=== PATIENT | male | born 1960 | race Caucasian/White ===

== ENCOUNTER 2017-10-10 17:18 | Emergency (ER) | payer OTHER ==
--- NOTE | 2017-10-10 17:46 | EDPHY ---
HPI/HX/ROS/PE/MDM Narrative: CHIEF COMPLAINT: Vomiting, shaking, chills HISTORY OF PRESENT ILLNESS: The patient is a 57 y/o male complaining of nausea, shaking, body aches, and chills onset 10:00, 8 hours ago. At 12:00, 6 hours ago, he began to vomit. His notes that the patient was not febrile, but was sweaty. Also felt lightheaded but no syncope. When he takes a deep breath he has mild low chest pain, mild thoracic back pain, and feels short of breath. He is currently feeling exhausted and has mild thoracic back pain. No influenza vaccination this year. Denies history of CAD, diabetes, hypertension, asthma, emphysema. Patient reports he has had midline thoracic back pain for months which has not received attention from medical providers. No fever, palpitations, diarrhea, urinary complaints, headache. REVIEW OF SYSTEMS: Aside from elements discussed in the HPI, a comprehensive 10-point review of systems was reviewed and is negative. PAST MEDICAL HISTORY: Appendectomy, fat emboli, left leg surgery SOCIAL HISTORY: Lives in [place], , [facility] VITAL SIGNS: HR: 130, BP: 137/84, others reviewed by me GENERAL: Well-developed, well-nourished, resting comfortably in no respiratory distress. Seems tired. HEENT: Atraumatic. Eyes: No icterus, no injection. Mouth: moist mucous membranes. No erythema or lesions. Neck: supple with no adenopathy. LUNGS: Clear to auscultation bilaterally, no wheezes, rhonchi or rales. CARDIAC: Tachycardic, no rubs, murmurs or gallops. ABDOMEN: Soft, nontender, nondistended, bowel sounds normal. BACK: No CVA tenderness. No midline pain to palpation. No rash. EXTREMITIES: No trauma. No edema. Range of motion is normal throughout. NEURO: Alert and oriented, grossly nonfocal. SKIN: Warm to the touch, slight diaphoresis, no rash. PSYCHIATRIC: Normal mentation, no agitation. Portions of this note were transcribed by a medical technologist hematology. I personally performed a history, physical exam, medical decision making, and confirmed accuracy of information the transcribed note. ED Course: The patient is a 57 y/o male presenting with nausea, chills, mild back pain, and mild lower chest pain. On exam he is tachycardic, clammy, and warm. Chest x- ray, EKG, and labs ordered. 1L IV NS administered. 1831: 12-LEAD EKG: Please see the full report in [employer] [facility]. My interpretation: Sinus tachycardic with a rate of 113. 1836: Patient has a negative troponin, negative D-dimer, largely unremarkable labs the exception of ketones in his urine and hemoconcentration noted on his CBC. No evidence of urinary tract infection. Influenza is negative. Additional 1L IV NS administered. 1919: Chest x-ray demonstrates some bibasilar atelectasis. Patient received a DuoNeb. 2036: Reassessed patient; he is feeling better after the DuoNeb and 2L IV NS. Suspect viral infection. No evidence of pneumonia, urinary tract infection, are significantly elevated white blood cell count. No evidence of bony thoracic findings on chest x-ray. I did discuss with the patient importance of following up with his primary care physician regarding this persistent and months long complaints of thoracic back pain. I have prescribed him Zofran for nausea, an inhaler, and advised him to take Tylenol and Ibuprofen for his pain. Return precautions provided; patient is comfortable with this plan. MDM: Differential diagnoses for the patient's symptom complex was considered including but not limited to influenza, viral syndrome, pneumonia, pulmonary embolism, gastroenteritis, gallstone disease, pancreatitis, UTI. - Data Points Imaging Results: CXR: Impression: 1. Mild airways disease and minimal left basilar atelectasis. 2. No pneumonia or effusion. Dictated By: Clay Irby MD Imaging: I viewed and interpreted images myself Laboratory Results: Laboratory Results 10/10/17 17:51 10/10/17 17:51 Medications Given: Discontinued Medications Albuterol (Proventil Neb) 3 ml IH EDNOW ONE Stop: 10/10/17 19:20 Last Admin: 10/10/17 19:38 Dose: 3 ml Albuterol Sulfate (Proventil Inh Prepack) 1 mdi TAKEHOME EDNOW ONE Stop: 10/10/17 21:12 Last Admin: 10/10/17 21:35 Dose: 1 mdi Sodium Chloride (Ns) 1,000 mls @ 0 mls/hr IV ONCE ONE; Wide Open PRN Reason: Protocol Stop: 02/04/18 18:05 Last Admin: 10/10/17 18:25 Dose: 1,000 mls Sodium Chloride (Ns) 1,000 mls @ 0 mls/hr IV ONCE ONE; Wide Open PRN Reason: Protocol Stop: 10/10/17 18:39 Last Admin: 10/10/17 18:40 Dose: 1,000 mls Sodium Chloride (Ns) 1,000 mls @ 0 mls/hr IV ONCE ONE; Wide Open PRN Reason: Protocol Stop: 10/10/17 19:59 Last Admin: 10/10/17 20:58 Dose: Not Given Ibuprofen (Motrin) 600 mg PO EDNOW ONE Stop: 10/10/17 20:43 Last Admin: 10/10/17 21:06 Dose: 600 mg Ondansetron HCl (Zofran Odt 4 Mg Prepack#2) 1 btl TAKEHOME EDNOW ONE Stop: 10/10/17 21:12 Last Admin: 10/10/17 21:34 Dose: 1 btl General Time Seen by Provider: 10/10/17 17:43 Initial Vital Signs: Initial Vital Signs Temperature (C) 36.7 C 10/10/17 17:21 Heart Rate 130 H 10/10/17 17:21 Respiratory Rate 20 10/10/17 17:21 Blood Pressure 137/84 H 10/10/17 17:21 O2 Sat (%) 97 10/10/17 17:21 O2 Delivery Mode Room Air Allergies/Adverse Reactions: No Known Allergies Allergy (Unverified 10/10/17 17:20) Home Medications: Medication Instructions Recorded Ondansetron Odt [Zofran Odt 4 mg 4 mg PO Q6 PRN #8 tab 10/10/17 (RX)] Departure - Departure Disposition: Home, Routine, Self-Care Clinical Impression: Reactive airway disease, Bronchitis Condition: Good Instructions: Acute Bronchitis (ED), Reactive Airways Disease (ED) Additional Instructions: Take Zofran as prescribed for nausea. Use the inhaler as prescribed for shortness of breath. Adult Pain & Fever Control: We recommend Acetaminophen (Tylenol) and Ibuprofen (Motrin, Advil) for pain and fever control. When fever is high or pain severe, both drugs can be used at the same time, but at different intervals. Please note the time differences. Your dose is: Acetaminophen [650-1000]mg every 4 to 6 hours Ibuprofen [600]mg every [8] hours with food. Follow-up with your primary doctor within 72 hours. You have been referred to Dr. Hicks. Return to the Emergency Department for fever, chest pain, shortness of breath, increasing pain or other worsening of condition. Referrals: Maximo Hicks MD [[facility] Primary Care Provider] - As per Instructions [facility],. [Clinic] - As per Instructions Prescriptions: Ondansetron Odt [Zofran Odt 4 mg (RX)] 4 mg PO Q6 PRN #8 tab PRN Reason: Nausea Report Scribed for: Shahla Berumen Report Scribed by: Vaishali Kaufman Date of Report: 10/10/17 Time of Report: 17:45
[2017-10-10] MEDS ORDERED: NS 1,000 ML IV ONE ×3 (18:04→19:58)
[2017-10-10 18:16] LABS: PLATELET COUNT 207 10^3/uL (150-400)
[2017-10-10 18:25] LABS: INR 0.97 (0.83-1.16); PROTIME(PATIENT) 13.1 SEC (12.0-15.0)
--- NOTE | 2017-10-10 18:34 | CPEKG ---
Heart Rate: 113 RR Interval: 531 P-R Interval: 168 QRSD Interval: 78 QT Interval: 304 QTC Interval: 417 P [place]: 75 QRS [place]: -21 T Wave [place]: 75 EKG Severity - BORDERLINE ECG - EKG Impression: SINUS TACHYCARDIA EKG Impression: PROBABLE LEFT ATRIAL ABNORMALITY EKG Impression: BORDERLINE LEFT AXIS DEVIATION Electronically Signed By: Shahla Berumen 11-Oct-2017 15:49:16
[2017-10-10] MEDS ORDERED: ALBUTEROL 3 ML DEYVIAL IH ONE (19:19)
[2017-10-10] MEDS ORDERED: IBUPROFEN 600 MG TAB PO ONE (20:42)
[2017-10-10 20:57] VITALS: O2SAT 97
[2017-10-10] MEDS ORDERED: ONDANSETRON 4MG PREPACK#2 BTL TAKEHOME ONE (21:11)
[2017-10-10] MEDS ORDERED: ALBUTEROL INH PREPACK MDI TAKEHOME ONE (21:11)
[2017-10-10 21:52] VITALS: BP 112/72; PULSE 108; RESP 16; TEMP 96.8
== END 2017-10-10 21:40 | disposition home or self-care (01) ==
DX: J45.909 Unspecified asthma, uncomplicated (principal); E86.9 Volume depletion, unspecified
CPT/HCPCS: J7613